=== PATIENT | female | born 1995 | race Two or more races ===

== ENCOUNTER 2017-02-21 19:02 | Emergency (ER) | payer OTHER, SELFPAY ==
[2017-02-21 23:12] LABS: #Eosinphils 0.1 thou/uL (0.0-0.7); #Lymphocytes 2.7 thou/uL (1.20-3.40); #Monocytes 0.5 thou/uL (0.11-0.59); #Neutrophils 7.2 thou/uL (1.40-6.50); %Basophils 0.3 % (0.0-1.0); %Lymphocytes 25.7 % (28.0-48.0); %Monocytes 4.7 % (0.0-4.0); %Neutrophils 68.3 % (31.0-61.0); Mean Corpuscular HGB CONC 35.7 g/dL (32.0-36.0); Mean Corpuscular Hemoglobin 30.6 pg (25.0-35.0); Mean Corpuscular Volume 85.9 fl (77.0-87.0); Mean Platelet Volume 9.1 fL (7.4-10.4); Platelet Count 188 thou/uL (130-400); RBC Distribution Width 12.3 % (11.5-14.5); Red Blood Cell (RBC) Count 4.58 mill/uL (4.00-5.20); White Blood Cell (WBC) Count 10.6 thou/uL (4.8-10.8)
[2017-02-21 23:35] LABS: ALT (SGPT) 10 U/L (8-55); AST (SGOT) 12 U/L (5-30); Albumin 4.3 g/dL (3.5-5.0); Alkaline Phosphatase 52 U/L (40-150); Anion Gap 14 mmol/L (10-20); BUN (Urea Nitrogen) 10 mg/dL (8.4-21.0); Bilirubin, Total 0.8 mg/dL (0.2-1.2); Calc. Creatinine Clearance 0 mL/min (70-130); Calcium 10.3 mg/dL (7.8-10.44); Carbon Dioxide 24 mmol/L (22-29); Chloride 103 mmol/L (98-107); Estimated GFR-MDRD Greater than 90; Globulin 3.5 g/dL (2.4-3.5); Glucose 102 mg/dL (70-105); Potassium 4.3 mmol/L (3.5-5.1); Protein, Total 7.8 g/dL (6.0-8.3); Sodium 137 mmol/L (136-145)
--- NOTE | 2017-04-01 20:17 | EKG ---
Test Reason : Blood Pressure : / mmHG Vent. Rate : 076 BPM Atrial Rate : 076 BPM P-R Int : 118 ms QRS Dur : 080 ms QT Int : 392 ms P-R-T Axes : 034 061 028 degrees QTc Int : 441 ms Normal sinus rhythm Nonspecific T wave abnormality Abnormal ECG Confirmed by TO BIPIN Sena ([id number]), editor newspaper ANI HARDIN ([id number]) on 04/01/2017 8:17:21 PM Referred By: Confirmed By:BIPIN EGAN M.D.
== END 2017-02-22 00:54 | disposition home or self-care (01) ==
LOC: ERS 19:02
DX: O99.89 Other specified diseases and conditions complicating pregnancy, childbirth and the puerperium (principal); R00.2 Palpitations; Z3A.09 9 weeks gestation of pregnancy
CPT/HCPCS: 36415; 80053; 85025; 93005

== ENCOUNTER 2017-04-03 13:36 | Emergency (ER) | payer OTHER ==
[2017-04-03 13:59] LABS: #Eosinphils 0.1 thou/uL (0.0-0.7); #Lymphocytes 1.9 thou/uL (1.20-3.40); #Monocytes 0.4 thou/uL (0.11-0.59); #Neutrophils 9.2 thou/uL (1.40-6.50); %Eosinophils 0.5 % (0.0-10.0); %Lymphocytes 16.3 % (28.0-48.0); %Monocytes 3.7 % (0.0-4.0); %Neutrophils 79.5 % (31.0-61.0); Mean Corpuscular HGB CONC 34.5 g/dL (32.0-36.0); Mean Corpuscular Hemoglobin 30.1 pg (25.0-35.0); Mean Corpuscular Volume 87.3 fl (77.0-87.0); Mean Platelet Volume 9.3 fL (7.4-10.4); Platelet Count 152 thou/uL (130-400); RBC Distribution Width 13.3 % (11.5-14.5); Red Blood Cell (RBC) Count 4.64 mill/uL (4.00-5.20); White Blood Cell (WBC) Count 11.6 thou/uL (4.8-10.8)
[2017-04-03 14:15] LABS: Bilirubin Negative (Negative); Blood, Urine Negative (Negative); Clarity CLOUDY (Clear); Glucose, Urine (Dipstick) Negative (Negative); Leukocyte Moderate (Negative); Nitrite Negative (Negative); Protein, Urine (Dipstick) Negative (Neg-Trace); Specific Gravity, Urine 1.016 (1.002-1.036); pH, Urine 7.5 (5.0-9.0)
[2017-04-03 14:17] LABS: Bacteria/HPF 1+ HPF (None Seen); Hyaline Casts/LPF 4-6 HYALINE CAST LPF (0-3 Hyaline); Pathc Cast-AUWi Flag 0.81 (0-2.49)
[2017-04-03 14:19] LABS: Yeast-AUWi Flag 50.5 (0-25.0)
[2017-04-03 14:23] LABS: ALT (SGPT) 11 U/L (8-55); AST (SGOT) 13 U/L (5-30); Albumin 4.2 g/dL (3.5-5.0); Alkaline Phosphatase 57 U/L (40-150); Anion Gap 12 mmol/L (10-20); BUN (Urea Nitrogen) 5 mg/dL (8.4-21.0); Calc. Creatinine Clearance 0 mL/min (70-130); Calcium 9.6 mg/dL (7.8-10.44); Carbon Dioxide 22 mmol/L (22-29); Chloride 103 mmol/L (98-107); Estimated GFR-MDRD Greater than 90; Globulin 3.3 g/dL (2.4-3.5); Glucose 75 mg/dL (70-105); Lipase 19 U/L (8-78); Potassium 3.8 mmol/L (3.5-5.1); Protein, Total 7.5 g/dL (6.0-8.3); Sodium 133 mmol/L (136-145)
[2017-04-03 14:32] LABS: Yeast-All Forms 1+ HPF (None Seen)
--- NOTE | 2017-04-03 16:20 | ULT ---
OB ULTRASOUND: History: Suprapubic pain, back pain, diarrhea. FINDINGS: A single live intrauterine gestation is seen and corresponds to an estimated gestational age of 15 we eks 5 days and an AARON of 818. measurements are as follows: BPD 3.42 cm 16 weeks 1 day HC 12.43 cm 16 weeks 2 days AC 9.39 cm 14 weeks 4 days FL 1.81 cm 15 weeks 3 days The heart rate measures 150 beats/minute. Placenta is posteriorly located without evidence of p lacenta previa. Amniotic fluid is adequate. Cervical length measures 3.1 cm. IMPRESSION: Single live IUP of 15 weeks 5 days estimated gestational age and AARON of 818. POS: [facility]
[2017-04-03] MEDS ORDERED: Acetaminophen 500 MG TAB ONE (16:32)
[2017-04-03] MEDS ORDERED: Ondansetron ODT 4 MG TAB ONE (16:40)
[2017-04-03] MEDS ORDERED: Ondansetron HCl/PF 4 MG/2 ML Vial ONE (17:24)
--- NOTE | 2017-04-03 18:39 | ULT ---
RENAL SONOGRAM: Date: 04-03-17 History: Flank pain, question of renal stones. Patient has positive . FINDINGS: Kidneys demonstrate a normal sonographic appearance bilaterally without evidence of renal mass, renal calculus, or hydronephrosis. No perinephric fluid collection is seen bilaterally. The right kidney measures 8.8 x 4.3 cm with the left kidney measures 9.8 x 4.9 cm. The urinary bladder is distended and demonstrates a normal sonographic appearance. There is partial v isualization of a intrauterine gestation, this is not well evaluated on this exam. IMPRESSION: Normal appearing bilateral kidneys without evidence of hydronephrosis. POS: [facility]
[2017-04-03] MEDS ORDERED: Acetaminophen 325 MG TAB ONE (19:00)
[2017-04-03] MEDS ORDERED: Promethazine HCl 25 MG/ML VIAL ONE (19:00)
== END 2017-04-03 19:35 | disposition home or self-care (01) ==
LOC: ERS 13:36
DX: O23.12 Infections of bladder in pregnancy, second trimester (principal); O21.9 Vomiting of pregnancy, unspecified; Z3A.16 16 weeks gestation of pregnancy
CPT/HCPCS: 36415; 76770; 76805; 80053; 81003; 81015; 83690; 84702; 85025; 87086; 96361; 96365; 96375; J0696; J2270; J2405; J2550; Q0162